=== PATIENT | female | born 1930 | race Caucasian/White ===

== ENCOUNTER 2019-10-01 14:18 | Emergency (ER) | payer MEDICARE, BC ==
[2019-10-01 14:29] VITALS: BP 139/82; PULSE 68; RESP 18; TEMP 97.9
--- NOTE | 2019-10-01 15:09 | ED ---
General Adult HPI - General Chief complaint: Fall Stated complaint: Fall 1 week ago Time Seen by Provider: 10/01/19 14:31 Source: patient, RN notes reviewed, old records reviewed Mode of arrival: wheelchair Limitations: no limitations - History of Present Illness Initial comments: 88-year-old female patient presents ED chief complaint of pain in right lower extremity. She reports that 2 weeks ago she suffered a fall. Reports that she was walking up her steps. Was approximately one step off of the ground when the railing broke. Patient reports that she stumbled against the garage ultimately falling on her right hip region. Denies any trauma to head or neck. Denies any use of blood thinners. 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 Patient reports that she initially felt some soreness in her right hip region for a few days. However it didn't improve. However for the last week patient reports that she has been experiencing poorly localized pain in her proximal femur as well as distal tibia/calcaneal region. Patient also reports that she has pain in the back of her thigh and calf region. Patient has still been ambulatory. She does report swelling in her right lower extremity. Denies any chest pain or shortness of breath. Denies any other complaints. Systemic: Pt denies fatigue, fever/chills, rash. Pt denies weakness, night sweats, weight loss. Neuro: Pt denies headache, visual disturbances, syncope or pre-syncope. HEENT: Pt denies ocular discharge or irritation, otalgia, rhinorrhea, pharyngitis or notable lymphadenopathy. Cardiopulmonary: Pt denies chest pain, SOB, heart palpitations, dyspnea on exertion. Abdominal/GI: Pt denies abdominal pain, n/v/d. : Pt denies dysuria, burning w/ urination, frequency/urgency. Denies new onset urinary or bowel incontinence. MSK: Pt denies loss of strength or function in extremities. Neuro: Pt denies new onset weakness, paresthesias. - Related Data Previous Rx's Medication Instructions Recorded Ibuprofen [Motrin] 600 mg PO Q8HR PRN #30 tab 07/13/16 Allergies Allergy/AdvReac Type Severity Reaction Status Date / Time No Known Allergies Allergy Verified 10/01/19 14:24 Review of Systems ROS Statement: Those systems with pertinent positive or pertinent negative responses have been documented in the HPI. ROS Other: All systems not noted in ROS Statement are negative. Past Medical History Past Medical History: Hyperlipidemia, Thyroid Disorder History of Any Multi-Drug Resistant Organisms: None Reported Past Surgical History: Joint Replacement Additional Past Surgical History / Comment(s): hip and shoulder replacement Past Psychological History: No Psychological Hx Reported Smoking Status: Never smoker Past Alcohol Use History: Rare Past Drug Use History: None Reported General Exam - General Exam Comments Initial Comments: Constitutional: NAD, AOX3, Pt has pleasant affect. HEENT: NC/AT, trachea midline, neck supple, no lymphadenopathy. Posterior pharynx non erythematous, without exudates. External ears appear normal, without discharge. Mucous membranes moist. Eyes PERRLA, EOM intact. There is no scleral icterus. No pallor noted. Cardiopulmonary: RRR, no murmurs, rubs or gallops, no JVD noted. Lungs CTAB in anterior and posterior reilly. No peripheral edema. Abdominal exam: Abdomen soft and non-distended. Abdomen non-tender to palpation in all 4 quadrants. Bowel sounds active in LLQ. No hepatosplenomegaly. No ecchymosis Neuro: CN II-XII grossly intact. No nuchal rigidity. No raccon eyes, no steinberg sign, no hemotympanum. No cervical spinal tenderness. MSK: Right posterior calf and thigh region mildly tender to palpation. Homans sign is negative bilaterally. Distal pulses are intact and equal. Mild amount of lower extremity edema in the lateral on the right side. No erythema. Posterior tibialis and radial pulse +2 bilaterally. calcaneal region tender to palpation. No other point tenderness identified.Sensation intact in upper and lower extremities. Full active ROM in upper and lower extremities, 5/5 stregnth. Limitations: no limitations Course Vital Signs 10/01/19 14:24 Temperature 97.9 F Pulse Rate 68 Respiratory 18 Rate Blood Pressure 139/82 O2 Sat by Pulse 95 Oximetry Medical Decision Making - Medical Decision Making 88-year-old female patient presents ED chief complaint of pain in right lower extremity. She reports that 2 weeks ago she suffered a fall. Reports that she was walking up her steps. Was approximately one step off of the ground when the railing broke. Patient reports that she stumbled against the garage ultimately falling on her right hip region. Denies any trauma to head or neck. Denies any use of blood thinners. 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 Patient reports that she initially felt some soreness in her right hip region for a few days. However it didn't improve. However for the last week patient reports that she has been experiencing poorly localized pain in her proximal femur as well as distal tibia/calcaneal region. Patient also reports that she has pain in the back of her thigh and calf region. Patient has still been ambulatory. She does report swelling in her right lower extremity. Denies any chest pain or shortness of breath. Denies any other complaints. Patient vital signs stable, afebrile. Physical exam displayed: Right posterior calf and thigh region mildly tender to palpation. Homans sign is negative bilaterally. Distal pulses are intact and equal. Mild amount of lower extremity edema in the lateral on the right side. No erythema. Posterior tibialis and radial pulse +2 bilaterally. calcaneal region tender to palpation. No other point tenderness identified.Sensation intact in upper and lower extremities. Full active ROM in upper and lower extremities, 5/5 stregnth. Plain film of femur, tibia/fibula displayed no acute process. Painful foot displayed stay first metatarsal fracture. Venous Doppler negative. Patient placed in a posterior ankle splint. Neurovascularly intact after splint placement. Will discharge with orthopedic follow-up. Case discussed with Dr. Ardon. Disposition Clinical Impression: Fall, Foot fracture Disposition: HOME SELF-CARE Condition: Stable Instructions (If sedation given, give patient instructions): Foot Fracture in Adults (ED) Additional Instructions: Patient to adhere to previously discussed treatment plan and will take medication(s) as directed. Patient to follow up with PCP in 1-2 days. Patient to return to ED if symptoms do not improve. continue to wear splint. Do not bear weight on right lower extremity. Follow- up with orthopedic consult tomorrow. Return to ER if condition worsens. Is patient prescribed a controlled substance at d/c from ED?: No Referrals: Ian Steinberg MD [Primary Care Provider] - 1-2 days Moise Tam DO [Doctor of Osteopathic Medicine] - 1-2 days
--- NOTE | 2019-10-01 15:18 | XR ---
EXAMINATION TYPE: XR femur RT DATE OF EXAM: 10/01/2019 CLINICAL HISTORY: Pain TECHNIQUE: Two views of the right femur are obtained. COMPARISON: AP pelvis 09/12/2016 FINDINGS: There is soft tissue ossification adjacent to the right hip. Diffuse osteopenia and postop erative changes seen. Vascular calcifications noted. Soft tissue edema and diffuse osteopenia noted. Arthropathy of the knee joint. IMPRESSION: 1. Postsurgical changes with no definite acute fracture.
--- NOTE | 2019-10-01 15:24 | XR ---
EXAMINATION TYPE: XR foot complete RT DATE OF EXAM: 10/01/2019 COMPARISON: NONE HISTORY: Pain TECHNIQUE: Three views are submitted. FINDINGS: Diffuse osteopenia noted. Mild narrowing the first MTP joint. No erosive changes. There is deformity of the proximal phalanx first digit suggestive of fracture. Calcaneal spurs are noted and there is so ft tissue edema. Hypertrophic change of the base of the fifth metatarsal is seen and there is narrowi ng of the tarsometatarsal joints. IMPRESSION: 1. There is a fracture of the proximal phalanx of the first digit
--- NOTE | 2019-10-01 15:25 | XR ---
EXAMINATION TYPE: XR tibia fibula RT DATE OF EXAM: 10/01/2019 COMPARISON: NONE HISTORY: Pain TECHNIQUE: Two views are submitted. FINDINGS: The osseous structures are intact. Diffuse osteopenia. Arthropathy of the knee joint.. IMPRESSION: 1. No acute osseous abnormality.
--- NOTE | 2019-10-01 16:15 | US ---
EXAMINATION TYPE: US venous doppler duplex LE RT DATE OF EXAM: 10/01/2019 3:46 PM COMPARISON: NONE CLINICAL HISTORY: fall, pain, swelling. SIDE PERFORMED: Right TECHNIQUE: The lower extremity deep venous system is examined utilizing real time linear array sonog reece with graded compression, doppler sonography and color-flow sonography. VESSELS IMAGED: External Iliac Vein (EIV) Common Femoral Vein Deep Femoral Vein Greater Saphenous Vein * Femoral Vein Popliteal Vein Small Saphenous Vein * Proximal Calf Veins (* superficial vessels) Right Leg: Negative for DVT IMPRESSION: 1. Right lower extremity ultrasound negative for deep venous thrombosis.
== END 2019-10-01 16:58 | disposition home or self-care (01) ==
LOC: EC 14:18 → SUPCPDRO 14:18 → EC 16:58
DX: S92.311A Displaced fracture of first metatarsal bone, right foot, initial encounter for closed fracture (principal); R60.0 Localized edema; M79.651 Pain in right thigh; M79.661 Pain in right lower leg; M25.551 Pain in right hip; Z96.649 Presence of unspecified artificial hip joint; W01.0XXA Fall on same level from slipping, tripping and stumbling without subsequent striking against object, initial encounter; Y93.01 Activity, walking, marching and hiking
CPT/HCPCS: 29515; 99284

== ENCOUNTER 2022-01-11 15:16 | Emergency (ER) | payer MEDICARE, BC ==
--- NOTE | 2022-01-11 15:52 | XR ---
EXAMINATION TYPE: XR wrist complete RT DATE OF EXAM: 01/11/2022 COMPARISON: None HISTORY: Injury, pain TECHNIQUE: 4 view right wrist FINDINGS: There is an oblique fracture the distal metaphyseal radius. Slight dorsal angulation is pre sent. Soft tissue swelling over the fracture site. Degenerative changes at the first carpal metacarpal junction. There may be some ulnar positive variance beyond the displacement of the distal radial fracture fragm ent. IMPRESSION: 1. Oblique fracture distal metaphyseal radius with overlying soft tissue swelling.
[2022-01-11] MEDS ORDERED: MORPHINE SULFATE 2 MG/ML SYRINGE IVP STA (16:14)
[2022-01-11] MEDS ORDERED: ONDANSETRON 4 MG/2 ML VIAL IVP STA (16:14)
[2022-01-11] MEDS ORDERED: BUPIVACAINE (PF) 0.5% 30 ML VIAL SQ STA (16:21)
[2022-01-11] MEDS ORDERED: LIDOCAINE 1% INJ 10MG/ML (20 ML MDV) SQ ONE (16:21)
[2022-01-11 16:54] VITALS: RESP 18
--- NOTE | 2022-01-11 17:07 | CT ---
EXAMINATION TYPE: CT facial bones wo con CT DLP: 904.4 mGycm, Automated exposure control for dose reduction was used. DATE OF EXAM: 01/11/2022 4:52 PM COMPARISON: CT sinus 03/11/2016. CLINICAL INDICATION:Female, 89 years old with history of Right facial trauma; periorbital; jaw; fall; , Fall with right facial trauma. TECHNIQUE: Multiple unenhanced axial CT images were obtained of the facial bones soft tissue and bone windows. Coronal, axial and sagittal reformatted images were also provided in soft tissue and bone windows and submitted for interpretation. Additional 3-D reformatted images were obtained on a [employer] workstation. FINDINGS: There is acute fracture through the right superior orbital ridge extending into the right frontal bon e without displacement. There is a fracture through the right coronoid process of mandible and nondis placed fracture through the zygomatic arch apex medial angulation lateral. Additional minimally displ aced fracture of the right lateral pterygoid plate is present. Additionally there is asymmetric extraconal thickening within the right orbit measuring up to 16 x 5 mm. No evidence of subluxation and dislocation. The temporal-mandibular joints appear symmetric. Mild sca ttered mild mucosal thickening most pronounced in the right maxillary sinus and right ethmoid air savage ls. Right periorbital soft tissue swelling/edema consistent with subcutaneous hematoma. The lenses ar e visualized in the globes. IMPRESSION: 1. Acute fractures of the right superior orbital ridge extending to the frontal bone, right zygomatic arch, right lateral pterygoid plate right coronoid process of the mandible. 2. Right periorbital subcutaneous edema/hematoma. 3. Right orbit extraconal probable hematoma measuring 16 x 5 mm.
--- NOTE | 2022-01-11 17:17 | CT ---
EXAMINATION TYPE: CT brain cspine wo con CT DLP: 904 EXAMINATION TYPE: CT brain cspine wo con CT DLP: 904.4 mGycm, Automated exposure control for dose reduction was used. DATE OF EXAM: 01/11/2022 4:51 PM COMPARISON: None.. CLINICAL INDICATION:Female, 89 years old with history of Fall injury; Fall with right facial trauma. TECHNIQUE: Brain: Multiple axial CT images of the brain were obtained without IV contrast. Cspine: Axial CT images from the skull base to the inferior aspect of T2 we obtained without intraven ous contrast. Coronal and sagittal reformatted images were also reviewed. FINDINGS: Brain: Extra-axial spaces: No abnormal extra-axial fluid collections. Ventricular system: Within normal limits Cerebral parenchyma: Cerebral atrophy. No acute intraparenchymal hemorrhage or mass effect. The dukes -white junction is well differentiated. Scattered hypoattenuating areas are seen within the white mat ter. Cerebellum: Unremarkable. Mass effect: No evidence of midline shift. Intracranial vasculature: Atherosclerotic calcifications of the intracranial vessels. Soft tissues: Periorbital edema/subcutaneous hematoma as described on CT facial same day. Calvarium/osseous structures: Acute fractures of the right lateral pterygoid plate, right mandible co ronoid process the frontal bone superior/superior orbital ridge, and right zygomatic arch. Paranasal sinuses and mastoid air cells: Mucosal thickening of the right ethmoid air cells and right sphenoid sinus. Visualized orbits: Orbital contents are intact. Cervical spine: Fracture: No acute spinal fractures identified. Irregular morphology to the proximal/medial left clav icle. Chronic appearing compression deformity of T3. Osseous structures: Multilevel degenerative disc disease changes with endplate spurring and disc oste ophyte complex's. Vertebral alignment: Increased kyphosis of the cervical spine. Spinal canal/Neural Foramina: No evidence of significant spinal canal narrowing. No evidence of signi ficant neural foramina narrowing. Neck soft tissues: Prevertebral soft tissues are within normal limits. Calcification of the nuchal li gament is present. Other: The airway is patent. The lung apices are clear. IMPRESSION: 1. No acute intracranial process. 2. Right periorbital edema/hematoma please see dedicated CT facial bones for additional findings rega rding the facial structures including multiple fractures. 3. No evidence of cervical spine fracture. 4. Multilevel degenerative disc disease changes. 5. Subacute to chronic medial left clavicle fracture. 6. Chronic appearing of T3 compression fracture.
--- NOTE | 2022-01-11 17:31 | XR ---
EXAMINATION TYPE: XR Hip RT and AP Pelvis DATE OF EXAM: 01/11/2022 4:47 PM INDICATION: Patient age:Female; 89 years old; Reason for study: Right groin pain/fall; COMPARISON: None. TECHNIQUE: The right hip was examined in the frontal and lateral projections and a AP pelvis. FINDINGS: Right hip prosthesis with hardware intact. No evidence of periprosthetic fracture. Clips of the arterial vasculature. Pelvic phleboliths are present.No evidence of any acute osseous pathology, joint dislocation, or soft tissue swelling. IMPRESSION: No acute osseous pathology.
[2022-01-11 17:43] LABS: Basophils % (A) 0 %; Eosinophils # (A) 0.1 k/uL (0-0.7); Eosinophils % (A) 1 %; HCT 40.6 % (34.0-46.0); HGB 13.7 gm/dL (11.4-16.0); Lymphocytes # (A) 0.5 k/uL (1.0-4.8); Lymphocytes % (A) 7 %; MCH 34.4 pg (25.0-35.0); MCHC 33.7 g/dL (31.0-37.0); MCV 102.2 fL (80.0-100.0); Macrocytosis Slight; Mean Platelet Volume 8.1; Monocytes # (A) 0.3 k/uL (0-1.0); Monocytes % (A) 4 %; Neutrophils # (A) 6.9 k/uL (1.3-7.7); Neutrophils % (A) 87 %; Platelet Count 104 k/uL (150-450); RBC 3.97 m/uL (3.80-5.40); RDW 12.8 % (11.5-15.5); WBC 7.9 k/uL (3.8-10.6)
--- NOTE | 2022-01-11 17:47 | ED ---
Fall HPI - General Source: patient Mode of arrival: wheelchair <Lisa Mock - Last Filed: 01/11/22 18:28> <Bryce Hudson - Last Filed: 01/11/22 19:06> - General Chief Complaint: Fall Stated Complaint: Fall Time Seen by Provider: 01/11/22 15:59 - History of Present Illness Initial Comments: 89 year-old female patient presents for evaluation after experiencing a fall in her garage. States she was bringing in the groceries when she fell and hit her face on the ground. She is reporting right facial pain, right wrist pain, and right groin pain. She denies use of blood thinning medications. She is unsure if she lost consciousness. She denies headache, blurred vision, or double vision. She denies neck or back pain. Denies numbness or tingling to the hands or feet. She was able to get up and walk into her house after a few minutes. She was brought in by daughter. Patient denies any chest pain, shortness of breath, dizziness, weakness, abdominal pain, nausea, vomiting, or difficulties with bowel movements or urination. (Lisa Mock) - Related Data Previous Rx's Medication Instructions Recorded Ibuprofen [Motrin] 600 mg PO Q8HR PRN #30 tab 07/13/16 Allergies Allergy/AdvReac Type Severity Reaction Status Date / Time No Known Allergies Allergy Verified 01/11/22 15:19 Review of Systems ROS Other: All systems not noted in ROS Statement are negative. <Lisa Mock - Last Filed: 01/11/22 18:28> ROS Other: All systems not noted in ROS Statement are negative. <Bryce Hudson - Last Filed: 01/11/22 19:06> ROS Statement: Those systems with pertinent positive or pertinent negative responses have been documented in the HPI. Past Medical History Past Medical History: Hyperlipidemia, Hypertension, Thyroid Disorder History of Any Multi-Drug Resistant Organisms: None Reported Past Surgical History: Joint Replacement, Orthopedic Surgery Additional Past Surgical History / Comment(s): hip and shoulder replacement Past Psychological History: No Psychological Hx Reported Smoking Status: Never smoker Past Alcohol Use History: Rare Past Drug Use History: None Reported <Lisa Mock - Last Filed: 01/11/22 18:28> General Exam Limitations: no limitations General appearance: alert, in no apparent distress, other (This is a well- developed, well-nourished elderly female patient in no acute distress.) Eye exam: Present: PERRL, EOMI, periorbital swelling (Right periorbital edema), periorbital tenderness (Right superior orbital tenderness), other (Right periorbital ecchymosis. No hyphema. Globes intact. Right supraorbital laceration 3cm.). Absent: scleral icterus, conjunctival injection ENT exam: Present: normal exam, normal oropharynx, mucous membranes moist, TM's normal bilaterally, other (Right TMJ tenderness, soft tissue swelling) Neck exam: Present: normal inspection, full ROM, other (Nontender, no step-off, no deformity to firm midline palpation of the posterior cervical spine. Full range of motion without pain or limitation.). Absent: tenderness, meningismus, lymphadenopathy Respiratory exam: Present: normal lung sounds bilaterally. Absent: respiratory distress, wheezes, rales, rhonchi, stridor Cardiovascular Exam: Present: regular rate, normal rhythm, normal heart sounds. Absent: systolic murmur, diastolic murmur, rubs, gallop, clicks GI/Abdominal exam: Present: soft, normal bowel sounds. Absent: distended, tenderness, guarding, rebound, rigid Extremities exam: Present: full ROM, tenderness (Right wrist), normal capillary refill, other (There is obvious deformity noted to the right wrist, tenderness. Skin is pink, warm, dry. Cap refill less than 2 seconds. Radial pulses 2+. Pelvis is stable with firm bilateral palpation.). Absent: normal inspection, pedal edema, joint swelling, calf tenderness Back exam: Present: normal inspection, other (Nontender, no step-off, no deformity to firm midline palpation of the thoracic and lumbar vertebrae. Full range of motion without pain or limitation.). Absent: vertebral tenderness Neurological exam: Present: alert, oriented X3, CN II-XII intact Psychiatric exam: Present: normal affect, normal mood Skin exam: Present: warm, dry, intact, normal color. Absent: rash <Lisa Mock - Last Filed: 01/11/22 18:28> Course <Bryce Hudson - Last Filed: 01/11/22 19:06> Vital Signs 01/11/22 01/11/22 01/11/22 15:19 16:42 18:15 Temperature 98.2 F Pulse Rate 87 91 95 Respiratory 20 18 18 Rate Blood Pressure 180/98 182/95 168/92 O2 Sat by Pulse 98 95 95 Oximetry 01/11/22 18:55 Temperature 97.9 F Pulse Rate 87 Respiratory 18 Rate Blood Pressure 159/87 O2 Sat by Pulse 95 Oximetry - Reevaluation(s) Reevaluation #1: 01/11/22 19:05 N P supervision: I did personally evaluate the patient she did fall in her garage prior to arrival she denies a loss of consciousness. She complains of right-sided facial pain also wrist pain. She is found to have multiple fractures on the imaging as well as fracture of her distal radius with possible volar subluxation. Exam did reveal marked amount of ecchymosis and tenderness from the right orbit or Chanel Coma Scale or was 15 except for the wrist findings no other deficits with range of motion. I do agree with the assessment and plan patient was transferred (Bryce Hudson) Procedures - Laceration Laceration #1 Consent Obtained: verbal consent Indication: laceration Site: other (right supraorbital) Size (cm): 3 Description: linear Depth: simple, single layer Type of Sutures: other (exofin skin adhesive) Patient Tolerated Procedure: well, no complications - Orthopedic Splinting/Casting Injury #1 Side: right Upper Extremity Injury Location: short arm, wrist Upper Extremity Immobilizer: sugar tong splint, David wrap, synthetic pre-padded splint <Lisa Mock - Last Filed: 01/11/22 18:28> Medical Decision Making - Lab Data Result diagrams: 01/11/22 17:34 01/11/22 17:34 - Radiology Data Radiology results: report reviewed, image reviewed <Lisa Mock - Last Filed: 01/11/22 18:28> - Lab Data Result diagrams: 01/11/22 17:34 01/11/22 17:34 <Bryce Hudson - Last Filed: 01/11/22 19:06> - Medical Decision Making 89-year-old female patient presented to the emergency department for evaluation of right sided facial injury, right wrist pain, and right groin pain after falling in her garage. Physical examination did reveal obvious right wrist deformity - neurovascular status intact. Significant right sided facial ecchymosis and swelling. Right supraorbital laceration. No right hip tenderness, able to bear weight on right leg, no pelvis instability. CT facial bones did reveal multiple right sided facial fractures including supraorbital ridge extending to right frontal, right zygomatic arch, right lateral pterygoid plate, right coronoid process of the mandible. There is also right orbital extraconal probable hematoma measuring 16 x 5 mm. Xray right wrist showed minimally displaced right distal radius fracture, positive displacement of the right ulna. CT brain cspine negative for acute abnormalities, xray right hip and pelvis negative. Labs unremarkable. Did discuss the case with trauma surgeon control integration engineer Dr. Davis who recommended transfer to higher level of care. Dr. Pepe from [facility] accepted t ransfer to ED, Dr. Banuelos ortho trauma accepted as well in regards to the right wrist. Patient was placed in a sugar tong splint, Dr. Banuelos did state they were able to reduce upon her arrival to their facility, in an effort to not delay transfer it was felt waiting for reduction was appropriate at this time...neurovascular status is intact and pain is under control. Patient and family are agreeable with this plan. Daughter will be available by phone for any questions or updates ([phone]). (Lisa Mock) - Lab Data Lab Results 01/11/22 01/11/22 01/11/22 Range/Units 17:34 17:34 17:34 WBC 7.9 (3.8-10.6) k/uL RBC 3.97 (3.80-5.40) m/uL Hgb 13.7 (11.4-16.0) gm/dL Hct 40.6 (34.0-46.0) % MCV 102.2 H (80.0-100.0) fL MCH 34.4 (25.0-35.0) pg MCHC 33.7 (31.0-37.0) g/dL RDW 12.8 (11.5-15.5) % Plt Count 104 L (150-450) k/uL MPV 8.1 Neutrophils % 87 % Lymphocytes % 7 % Monocytes % 4 % Eosinophils % 1 % Basophils % 0 % Neutrophils # 6.9 (1.3-7.7) k/uL Lymphocytes # 0.5 L (1.0-4.8) k/uL Monocytes # 0.3 (0-1.0) k/uL Eosinophils # 0.1 (0-0.7) k/uL Basophils # 0.0 (0-0.2) k/uL Macrocytosis Slight PT 11.0 (9.0-12.0) sec INR 1.0 (<1.2) APTT 24.3 (22.0-30.0) sec Sodium 138 (137-145) mmol/L Potassium 4.3 (3.5-5.1) mmol/L Chloride 105 (98-107) mmol/L Carbon Dioxide 23 (22-30) mmol/L Anion Gap 10 mmol/L BUN 26 H (7-17) mg/dL Creatinine 0.87 (0.52-1.04) mg/dL Est GFR (CKD-EPI)AfAm 68 (>60 ml/min/1.73 sqM) Est GFR (CKD-EPI)NonAf 59 (>60 ml/min/1.73 sqM) Glucose 104 H (74-99) mg/dL Calcium 9.6 (8.4-10.2) mg/dL Total Bilirubin 0.9 (0.2-1.3) mg/dL AST 49 H (14-36) U/L ALT 31 (4-34) U/L Alkaline Phosphatase 119 (38-126) U/L Total Protein 7.3 (6.3-8.2) g/dL Albumin 4.5 (3.5-5.0) g/dL - Radiology Data X-rays of the right hip and pelvis are obtained. Report was reviewed in its entirety. Impression by Dr. Montero shows no acute osseous pathology. CT of the brain and C-spine was obtained. Report reviewed in its entirety. Impression by Dr. Montero shows no cute intracranial process. Right periorbital edema/hematoma please see dedicated CT facial bones for additional findings regarding the facial structures including multiple fractures. No evidence of cervical spine fracture. Multilevel degenerative disc disease changes. Subacute to chronic medial left clavicle fracture. Chronic appearing T3 compression fracture. CT facial bones without contrast was obtained. Report is reviewed in its entirety. Impression by Dr. Montero shows acute fractures of the right superior orbital ridge extending to the frontal bone, right zygomatic arch, right lateral pterygoid plate right coronoid process of the mandible. Right periorbital subcutaneous edema/hematoma. Right orbit fracture, probable hematoma measuring 16 x 5 mm. X-ray of the right wrist was obtained. Report is reviewed in its entirety. Impression by Dr. Dumont shows oblique fracture distal metaphyseal radius with overlying soft tissue swelling. There is slight dorsal angulation. May also be some ulnar positive variance beyond the displacement of the distal radial fracture fragment. (Lisa Mock) Disposition - Out of Hospital Transfer - Req. Specs Out of Hospital Transfer - Requested Specifics: Other Emergency Center ([facility]) <Lisa Mock - Last Filed: 01/11/22 18:28> <Bryce Hudson - Last Filed: 01/11/22 19:06> Clinical Impression: Extensive facial fractures, Right wrist fracture, Traumatic hematoma of right eyebrow Disposition: OTHER INSTITUTION NOT DEFINED Condition: Serious Referrals: Ian Steinberg MD [Primary Care Provider] - 1-2 days
[2022-01-11 17:53] LABS: Albumin 4.5 g/dL (3.5-5.0); Calcium 9.6 mg/dL (8.4-10.2); Partial Thromboplastin Time 24.3 sec (22.0-30.0); Potassium 4.3 mmol/L (3.5-5.1); Total Bilirubin 0.9 mg/dL (0.2-1.3); Total Protein 7.3 g/dL (6.3-8.2)
[2022-01-11] MEDS ORDERED: TOPICAL SKIN ADHESIVE 1 EACH AMP TOPICAL ONE (18:27)
[2022-01-11] MEDS ORDERED: MORPHINE SULFATE 4 MG/ML SYRINGE IVP STA (18:44)
[2022-01-11 18:59] VITALS: BP 159/87; PULSE 87; TEMP 97.9
== END 2022-01-11 18:59 | disposition other institution (70) ==
LOC: EC 15:16
DX: S02.92XA Unspecified fracture of facial bones, initial encounter for closed fracture (principal); S52.591A Other fractures of lower end of right radius, initial encounter for closed fracture; S52.601A Unspecified fracture of lower end of right ulna, initial encounter for closed fracture; S05.41XA Penetrating wound of orbit with or without foreign body, right eye, initial encounter; I10 Essential (primary) hypertension; E78.5 Hyperlipidemia, unspecified; W19.XXXA Unspecified fall, initial encounter; Y92.59 Other trade areas as the place of occurrence of the external cause
CPT/HCPCS: 36415; 80053; 85025; 85610; 85730; 73502; 73110; 72125; 70486; 70450; 29125; 99285; 96374; 96375 ×2; 96376; 12013; J2270 ×2; J2405; J0690; J2001